=== PATIENT | male | born 1995 | race Caucasian/White ===

== ENCOUNTER 2020-04-05 07:01 | Emergency (ER) | payer MEDICAID, SELFPAY ==
[2020-04-05 07:31] VITALS: BP 116/75; PULSE 74; RESP 16; TEMP 36.8; O2SAT 98; BMI 24.8
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
[2020-04-05] MEDS: Tetracaine HCl/PF 0.5% Oph Sol 4 ML DROPS 1 DROP EYE-RIGHT (08:27)
[2020-04-05] MEDS: Fluorescein Sodium STRIP 1 STRIP EYE-RIGHT (08:28)
== END 2020-04-05 09:08 | disposition home or self-care (01) ==
PROVIDERS: Emergency Provider Emergency Medicine
DX: H20.00 Unspecified acute and subacute iridocyclitis (principal); H57.11 Ocular pain, right eye; H53.143 Visual discomfort, bilateral; F17.200 Nicotine dependence, unspecified, uncomplicated; Z71.6 Tobacco abuse counseling
CPT/HCPCS: 99283

== ENCOUNTER 2020-06-09 10:48 | Emergency (ER) | payer MEDICAID, SELFPAY ==
[2020-06-09 11:16] VITALS: BP 116/63; PULSE 80; RESP 18; TEMP 36.6; O2SAT 100; BMI 25.0
[2020-06-09 12:08] LABS: Glucose Urine UA NEG (NEG); Leukocyte Esterase Urine NEG (NEG); Nitrite Urine NEG (NEG); Urine Blood 2+ (NEG); Urine Ketones NEG (NEG); Urine Protein NEG (NEG-TRACE)
[2020-06-09 12:12] LABS: Appearance Urine HAZY; Color Urine YELLOW
[2020-06-09 12:16] LABS: MANUAL DIFF FLAG NO
[2020-06-09 12:20] LABS: Basophils Percent Auto 0.5 % (0-2); Eosinophils Absolute Auto 0.1 X10*3/uL (0.0-0.4); Eosinophils Percent Auto 1.6 % (0-4); Hematocrit 45.2 % (42-52); Hemoglobin 15.1 g/dl (14.0-18.0); Imm Gran Abs Auto 0.02 X10*3/uL (0.00-0.03); Imm Gran Pct Auto 0.3 % (0.0-0.4); Lymphocytes Absolute Auto 1.9 X10*3/uL (1.2-4.9); Lymphocytes Percent Auto 29.6 % (20-40); Mean Corpuscular HGB Conc 33.4 g/dl (31.0-36.0); Mean Corpuscular Hemoglobin 30.4 pg (27.0-33.0); Mean Corpuscular Volume 90.9 fL (80-98); Mean Platelet Volume 11.2 fL (9.4-12.4); Monocytes Absolute Auto 0.4 X10*3/uL (0.1-1.2); Platelet Count 207 X10*3/uL (160-400); Red Blood Count 4.97 X10*6/uL (4.60-5.80); Red Cell Distribution Width 13.9 % (11.0-16.0); White Blood Count 6.5 X10*3/uL (4.8-10.8)
[2020-06-09 12:51] LABS: Alanine Aminotransferase 18 U/L (0-40); Albumin Level 4.3 g/dL (3.5-5.0); Alkaline Phosphatase 48 U/L (39-117); Anion Gap 12 (12-20); Aspartate Amino Transferase 19 U/L (5-37); Bilirubin Total 1.4 mg/dL (0.0-1.0); Blood Urea Nitrogen 16 mg/dL (9-16); Calcium 9.4 mg/dL (8.4-10.2); Carbon Dioxide 27 mmol/L (22-29); Chloride 106 mmol/L (96-108); Creatinine Clr Calc Pharmacy 122.4; Estimated Glomerular Filt Rate > 60; Glucose Random 98 mg/dL (60-115); Potassium 4.6 mmol/l (3.3-5.1); Sodium 140 mmol/L (135-145); Total Protein 7.1 g/dL (6.5-8.0)
[2020-06-09 13:00] LABS: Amorphous Sediment Urine 1+ /LPF; Mucus Urine 1+ /LPF; Squamous Epithelial Cell Urine TRACE /LPF; WBC Urine 0-2 /HPF (0-4)
--- NOTE | 2020-06-09 14:10 | ED.GENADULT ---
HPI - General Adult General Chief complaint: General Medical Stated complaint: swollen hand, hematuria Time Seen by Provider: 06/09/20 11:31 Source: patient Mode of arrival: ambulatory Limitations: no limitations History of Present Illness HPI narrative: 24-year-old male who denies significant past medical history he presents with multiple complaints 1. He reports that he will get sensation of hand swelling in the bilateral hand usually after working out or doing certain activities and it will go way. States he had this morning and went away completely. This is been going on for several years 2. He reports that he has been noticing some strings of blood in his urine and as well as been going on for the past several months. He denies any testicular pain or swelling. No dysuria. States he is not sexually active. No abdominal pain or flank pain. No nausea vomiting diarrhea. Onset (ago): month(s) Associated symptoms: denies other symptoms Treatments prior to arrival: none Related Data Previous Rx's Medication Instructions Recorded hydrocodone-acetaminophen 1 tab PO Q6H PRN #12 tab 04/05/20 doxycycline monohydrate 100 mg PO BID 7 Days #14 cap 06/09/20 Allergies Allergy/AdvReac Type Severity Reaction Status Date / Time No Known Allergies Allergy Verified 04/05/20 07:41 [No Known Allergies*] Review of Systems Review of Systems: Constitutional: No Weight loss, No Fever, No Chills, No Night Sweats, No Fatigue, No Malaise ENT/Mouth: No Hearing loss, No Ear Pain, No Nasal Congestion, No Sinus Pain, No Hoarseness, No sore throat, No Rhinorrhea, No Swallowing Difficulty Eyes: No Eye Pain, No Swelling, No Redness, No Foreign Body, No Discharge, No Vision Changes Cardiovascular: No Chest Pain, No SOB, No Dyspnea on Exertion, No Orthopnea, No Edema, No Palpitations Respiratory: No Cough, No Sputum, No Wheezing, No Smoke Exposure, No Dyspnea Gastrointestinal: No Nausea, No Vomiting, No Diarrhea, No Constipation, No abdominal Pain, No Hematochezia, No Melena Genitourinary: no irregular bleeding, No Dysuria, No Urinary Frequency, No Hematuria, No Urinary Incontinence, No Urgency, No Flank Pain Musculoskeletal: No joint pain, No Myalgias, No Joint Swelling Skin: No Skin Lesions, No rash Neuro: No Weakness, No Numbness, No Paresthesias, No Loss of Consciousness, No Dizziness, No Headache Psych: No Social Issues Heme/Lymph: No Bruising, No Bleeding,No Lymphadenopathy Endocrine: No Polyuria, No Polydipsia, No Temperature Intolerance Yes all other systems are reviewed and are negative [facility] Past Medical History Medical History Hernia Lazy eye of left side Social History Social History Alcohol intake: current Alcohol intake frequency: a few times a week Smoking Status: Current every day smoker Substance Use Type: Marijuana Advance Directives: No Advance Directives Information Provided: Yes Physical Exam Vital Signs: Vital Signs: Last Vital Signs Temp 97.8 F 06/09/20 11:16 Pulse 80 06/09/20 11:16 Resp 18 06/09/20 11:16 BP 116/63 06/09/20 11:16 Pulse Ox 100 06/09/20 11:16 Body Mass Index 25.0 Reviewed Const: General: cooperative and healthy appearing; No acute distress or intoxicated appearing Nutritional Appearance: average body habitus Orientation/consciousness: patient oriented x3 HENMT: Head: Yes normal to inspection Ears: hearing grossly normal bilaterally Eyes: General: appearance normal, both eyes and all related structures Visual De Oliveira: normal visual de oliveira by confrontation Neck: Neck: Yes normal visual inspection, No positive Brudzinski's sign, No positive Kernig's sign and No tender Thyroid: Thyroid normal Chest: Chest palpation & inspection: normal inspection of the chest Resp: Effort & Inspection: normal respiratory effort Auscultation: clear to auscultation bilaterally Cardio: Jugular venous distension: no JVD Rhythm: regular rhythm Heart sounds: S1 normal heart sound present and S2 normal heart sound present GI: Inspection: Yes normal to inspection Palpation (GI): Soft to palpation Percussion: Yes normal to percussion Auscultation: normal bowel sounds : General: Yes no CVA tenderness Back/Spine/Pelvis: Back: no CVA tenderness Skin: General skin exam: no rashes or lesions noted Neuro: General: patient oriented x3 Extrem: Other: Bilateral 1st extremities without any evidence of edema, joint swelling, rash. Neurovascularly intact. Full range of motion. States he does not feel like his hands are swelling at this time. Pulses within normal limits. General: Yes normal to inspection Course Course Course Narrative: In review of the chart multiple episodes of gonorrhea. Reevaluation(s) Reevaluation #1: Lab work essentially unremarkable no leukocytosis. Renal function intact. UA WBC and microscopic RBC given his history of STI my suspicion does exist for this again though he states he feels that he has very low probability of this. Agreeable to getting tested. Will give him ceftriaxone and 500 mg and discharged with doxy with refer to [facility] for full [facility]I panel testing and as well as Urology for further investigation into his hematuria. Medical Decision Making Lab Data Result diagrams: 06/09/20 12:07 06/09/20 12:07 Labs: Lab Results 06/09/20 06/09/20 06/09/20 Range/Units 11:58 12:07 12:07 WBC 6.5 (4.8-10.8) X10*3/uL RBC 4.97 (4.60-5.80) X10*6/uL Hgb 15.1 (14.0-18.0) g/dl Hct 45.2 (42-52) % MCV 90.9 (80-98) fL MCH 30.4 (27.0-33.0) pg MCHC 33.4 (31.0-36.0) g/dl RDW 13.9 (11.0-16.0) % Plt Count 207 (160-400) X10*3/uL MPV 11.2 (9.4-12.4) fL Immature Gran % (Auto) 0.3 (0.0-0.4) % Neut % (Auto) 62.0 (45-73) % Lymph % (Auto) 29.6 (20-40) % [place] % (Auto) 6.0 (2-11) % Eos % (Auto) 1.6 (0-4) % Baso % (Auto) 0.5 (0-2) % Lymph # (Auto) 1.9 (1.2-4.9) X10*3/uL [place] # (Auto) 0.4 (0.1-1.2) X10*3/uL Eos # (Auto) 0.1 (0.0-0.4) X10*3/uL Baso # (Auto) 0.0 (0.0-0.2) X10*3/uL Abs Immat Gran (auto) 0.02 (0.00-0.03) X10*3/uL Absolute Neuts (auto) 4.0 (2.0-8.3) X10*3/uL Absolute Nucleated RBC 0.000 (0.0-0.012) X10*3/uL Nucleated RBC % (auto) 0.0 (0.0-0.2) /100WBC Sodium 140 (135-145) mmol/L Potassium 4.6 (3.3-5.1) mmol/l Chloride 106 (96-108) mmol/L Carbon Dioxide 27 (22-29) mmol/L Anion Gap 12 (12-20) BUN 16 (9-16) mg/dL Creatinine 0.87 (0.5-1.4) mg/dL Estim Creat Clear Calc 122.4 Estimated GFR > 60 Random Glucose 98 (60-115) mg/dL Calcium 9.4 (8.4-10.2) mg/dL Total Bilirubin 1.4 H (0.0-1.0) mg/dL AST 19 (5-37) U/L ALT 18 (0-40) U/L Alkaline Phosphatase 48 (39-117) U/L Total Creatine Kinase (38-174) U/L Total Protein 7.1 (6.5-8.0) g/dL Albumin 4.3 (3.5-5.0) g/dL Urine Color YELLOW Urine Appearance HAZY Urine pH 7.0 (5.0-8.0) Ur Specific [place] 1.020 (1.005-1.025) Urine Protein NEG (NEG-TRACE) MG/DL Urine Glucose (UA) NEG (NEG) MG/DL Urine Ketones NEG (NEG) MG/DL Urine Blood 2+ H (NEG) Urine Nitrite NEG (NEG) Ur Leukocyte Esterase NEG (NEG) Urine RBC 5-9 H (0) /HPF Urine WBC 0-2 (0-4) /HPF Ur Squamous Epith Cells TRACE /LPF Amorphous Sediment 1+ /LPF Urine Bacteria NONE /LPF Urine Mucus 1+ /LPF 06/09/20 Range/Units 12:08 WBC (4.8-10.8) X10*3/uL RBC (4.60-5.80) X10*6/uL Hgb (14.0-18.0) g/dl Hct (42-52) % MCV (80-98) fL MCH (27.0-33.0) pg MCHC (31.0-36.0) g/dl RDW (11.0-16.0) % Plt Count (160-400) X10*3/uL MPV (9.4-12.4) fL Immature Gran % (Auto) (0.0-0.4) % Neut % (Auto) (45-73) % Lymph % (Auto) (20-40) % [place] % (Auto) (2-11) % Eos % (Auto) (0-4) % Baso % (Auto) (0-2) % Lymph # (Auto) (1.2-4.9) X10*3/uL [place] # (Auto) (0.1-1.2) X10*3/uL Eos # (Auto) (0.0-0.4) X10*3/uL Baso # (Auto) (0.0-0.2) X10*3/uL Abs Immat Gran (auto) (0.00-0.03) X10*3/uL Absolute Neuts (auto) (2.0-8.3) X10*3/uL Absolute Nucleated RBC (0.0-0.012) X10*3/uL Nucleated RBC % (auto) (0.0-0.2) /100WBC Sodium (135-145) mmol/L Potassium (3.3-5.1) mmol/l Chloride (96-108) mmol/L Carbon Dioxide (22-29) mmol/L Anion Gap (12-20) BUN (9-16) mg/dL Creatinine (0.5-1.4) mg/dL Estim Creat Clear Calc Estimated GFR Random Glucose (60-115) mg/dL Calcium (8.4-10.2) mg/dL Total Bilirubin (0.0-1.0) mg/dL AST (5-37) U/L ALT (0-40) U/L Alkaline Phosphatase (39-117) U/L Total Creatine Kinase 231 H (38-174) U/L Total Protein (6.5-8.0) g/dL Albumin (3.5-5.0) g/dL Urine Color Urine Appearance Urine pH (5.0-8.0) Ur Specific [place] (1.005-1.025) Urine Protein (NEG-TRACE) MG/DL Urine Glucose (UA) (NEG) MG/DL Urine Ketones (NEG) MG/DL Urine Blood (NEG) Urine Nitrite (NEG) Ur Leukocyte Esterase (NEG) Urine RBC (0) /HPF Urine WBC (0-4) /HPF Ur Squamous Epith Cells /LPF Amorphous Sediment /LPF Urine Bacteria /LPF Urine Mucus /LPF Discharge Plan Discharge Clinical Impression: Hematuria Qualifiers: Hematuria type: other microscopic Qualified Code(s): R31.29 - Other microscopic hematuria Patient Disposition: Home, Self-Care Instructions: Hematuria (ED) Additional Instructions: Follow-up with the health clinic for full panel STD testing as discussed Avoid any further sexual intercourse until cleared Follow-up with a urologist as discussed Return if any concerns or worsening symptoms Thank you Prescriptions: New doxycycline monohydrate 100 mg capsule 100 mg PO BID 7 Days Qty: 14 RF: 0 No Action hydrocodone-acetaminophen 5-325 mg tablet 1 tab PO Q6H PRN (Reason: pain) Qty: 12 RF: 0 Referrals: Nickolas Cantu MD [Physician] - 1 week [place] [Primary Care Provider] - 2 days Stand Alone Forms: Work/School Release Interventions: ED Discharge Assessment Last Done: 06/09/20 15:05 Discharge Date/Time: 06/09/20 15:05
[2020-06-09] MEDS: cefTRIAXone sodium 500 MG, Lidocaine HCl 1 % MPF 1 ML IM (14:56)
[2020-06-11 10:31] LABS: C. trachomatis RNA TMA NOT DETECTED; N. gonorrhoeae RNA TMA NOT DETECTED
== END 2020-06-09 15:05 | disposition home or self-care (01) ==
PROVIDERS: Nurse Practitioner Primary Care; Emergency Provider Emergency Medicine
DX: R31.29 Other microscopic hematuria (principal); Z11.3 Encounter for screening for infections with a predominantly sexual mode of transmission; F17.200 Nicotine dependence, unspecified, uncomplicated
CPT/HCPCS: 36415; 80053; 81001; 82550; 85025; 87491; 87591; 96372; 99283; 99284; J0696

== ENCOUNTER 2020-08-15 13:02 | Outpatient (REF) | payer MEDICAID, SELFPAY | END 2020-08-15 13:03 | disposition home or self-care (01) | LOC: HO.LAB 13:02 | PROVIDERS: Visit Provider Internal Medicine | DX: Z20.822 Contact with and (suspected) exposure to COVID-19 (principal) | CPT/HCPCS: 36415; C9803; U0003; U0005 ==

== ENCOUNTER 2020-10-18 16:50 | Emergency (ER) | payer MEDICAID, SELFPAY ==
[2020-10-18 16:58] VITALS: BP 128/74; PULSE 105; RESP 18; TEMP 36.4; O2SAT 97; BMI 25.0
[2020-10-18 17:25] LABS: Glucose Urine UA NEG (NEG); Leukocyte Esterase Urine NEG (NEG); Nitrite Urine NEG (NEG); Specific Gravity - Urine >= 1.030 (1.005-1.025); Urine Blood TRACE (NEG); Urine Ketones NEG (NEG); Urine Protein TRACE MG/DL (NEG-TRACE)
[2020-10-18 17:26] LABS: Appearance Urine CLEAR; Color Urine YELLOW
[2020-10-18 17:32] LABS: Bacteria Urine TRACE /LPF; Mucus Urine 2+ /LPF; Squamous Epithelial Cell Urine TRACE /LPF; WBC Urine 0-2 /HPF (0-4)
--- NOTE | 2020-10-18 17:47 | ED.GENADULT ---
HPI - General Adult General Chief complaint: Abdominal Pain Stated complaint: side pain Time Seen by Provider: 10/18/20 17:47 Source: patient, RN notes reviewed and old records reviewed Mode of arrival: ambulatory Limitations: no limitations History of Present Illness HPI narrative: 24-year-old male here today for complaints of left upper quadrant pain. He describes this pain as sharp and intermittent. He also reports that his face is itchy as well as his throat feels funny. Denies dysphagia, odynophagia or dyspepsia. Patient reports that he also has a postnasal drip and states that when he took Benadryl the symptoms went away. He is unaware if he has any seasonal allergies or any other allergies. Patient denies any other symptoms Related Data Previous Rx's Medication Instructions Recorded hydrocodone-acetaminophen 1 tab PO Q6H PRN #12 tab 04/05/20 doxycycline monohydrate 100 mg PO BID 7 Days #14 cap 06/09/20 cetirizine [Zyrtec] 10 mg PO DAILY PRN #20 cap 10/18/20 Allergies Allergy/AdvReac Type Severity Reaction Status Date / Time No Known Allergies Allergy Verified 04/05/20 07:41 [No Known Allergies*] Review of Systems Review of Systems: Constitutional : No Weight loss, No Fever, No Chills, No Night Sweats, No Fatigue, No Malaise ENT/Mouth : No Hearing loss, No Ear Pain, No Nasal Congestion, No Sinus Pain, No Hoarseness, No sore throat, Rhinorrhea, No Swallowing Difficulty Eyes: No Eye Pain, No Swelling, No Redness, No Foreign Body, No Discharge, No Vision Changes Cardiovascular : No Chest Pain, No SOB, No Dyspnea on Exertion, No Orthopnea, No Edema, No Palpitations Respiratory : No Cough, No Sputum, No Wheezing, No Smoke Exposure, No Dyspnea Gastrointestinal : No Nausea, No Vomiting, No Diarrhea, No Constipation, abdominal Pain, No Hematochezia, No Melena Genitourinary : no irregular bleeding, No Dysuria, No Urinary Frequency, No Hematuria, No Urinary Incontinence, No Urgency, No Flank Pain, No Urinary Flow Changes, No Hesitancy Musculoskeletal : No joint pain, No Myalgias, No Joint Swelling Skin : No Skin Lesions, No rash Neuro : No Weakness, No Numbness, No Paresthesias, No Loss of Consciousness, No Dizziness, No Headache Psych : No Anxiety/Panic, No Depression, No SI/HI/AH/VH, No Social Issues, Heme/Lymph: No Bruising, No Bleeding,No Lymphadenopathy Endocrine : No Polyuria, No Polydipsia, No Temperature Intolerance Yes all other systems are reviewed and are negative PMFSH Past Medical History Medical History Hernia Lazy eye of left side Social History Social History Alcohol intake: current Alcohol intake frequency: 3 or more drinks per day Alcohol type: beer Patient Tobacco Use Status: Current someday Tobacco user Use of substances other than those prescribed or required for medical reasons: Yes Substance Use Type: Crack/Cocaine Advance Directives: No Advance Directives Information Provided: No Physical Exam Vital Signs: Vital Signs: Last Vital Signs Temp 99.2 F 10/18/20 17:50 Pulse 101 H 10/18/20 17:50 Resp 17 10/18/20 17:50 BP 128/85 10/18/20 17:50 Pulse Ox 98 10/18/20 17:50 Body Mass Index 25.0 Const: General: healthy appearing, no acute distress and well developed Nutritional Appearance: well nourished Orientation/consciousness: patient oriented x3 Neck: Neck: Yes normal visual inspection, Yes full ROM and Yes trachea midline Thyroid: Thyroid normal Resp: Auscultation: clear to auscultation bilaterally Cardio: Rate: regular rate Rhythm: regular rhythm GI: Inspection: Yes normal to inspection and No distended Palpation (GI): No hepatosplenomegaly present Auscultation: normal bowel sounds Skin: General skin exam: elasticity normal, turgor normal and dry skin Neuro: General: patient oriented x3 Course Course Course Narrative: 24-year-old male here today with intermittent left upper quadrant pain that feels like sharp pain. Normal bowel movements every day. On exam patient has a lot of gas in left upper quadrant and mid upper area. Oral exam shows redness to posterior pharynx, questioning postnasal drip and allergies. Patient reports that he took Benadryl and his symptoms went away. Reevaluation(s) Reevaluation #1: Lab work negative for leukocytosis or anemia. Electrolytes normal, liver function tests normal. Spoke to patient, patient reports to be feeling itchy no visible redness or rash. Possible dx seasonal allergy. Will send patient home with [facility]. He is agreeable to plan of care and verbalizes understanding of instructions. He was given the opportunity to ask questions and all questions answered. Medical Decision Making Lab Data Result diagrams: 10/18/20 18:07 10/18/20 18:07 Labs: Lab Results 10/18/20 10/18/20 10/18/20 Range/Units 17:13 18:07 18:07 WBC 10.6 (4.8-10.8) X10*3/uL RBC 5.06 (4.60-5.80) X10*6/uL Hgb 15.3 (14.0-18.0) g/dl Hct 45.6 (42-52) % MCV 90.1 (80-98) fL MCH 30.2 (27.0-33.0) pg MCHC 33.6 (31.0-36.0) g/dl RDW 13.2 (11.0-16.0) % Plt Count 241 (160-400) X10*3/uL MPV 11.0 (9.4-12.4) fL Immature Gran % (Auto) 0.4 (0.0-0.4) % Neut % (Auto) 70.2 (45-73) % Lymph % (Auto) 24.2 (20-40) % [place] % (Auto) 3.8 (2-11) % Eos % (Auto) 0.9 (0-4) % Baso % (Auto) 0.5 (0-2) % Lymph # (Auto) 2.6 (1.2-4.9) X10*3/uL [place] # (Auto) 0.4 (0.1-1.2) X10*3/uL Eos # (Auto) 0.1 (0.0-0.4) X10*3/uL Baso # (Auto) 0.1 (0.0-0.2) X10*3/uL Abs Immat Gran (auto) 0.04 H (0.00-0.03) X10*3/uL Absolute Neuts (auto) 7.4 (2.0-8.3) X10*3/uL Absolute Nucleated RBC 0.000 (0.0-0.012) X10*3/uL Nucleated RBC % (auto) 0.0 (0.0-0.2) /100WBC Sodium 139 (135-145) mmol/L Potassium 4.3 (3.3-5.1) mmol/L Chloride 103 (96-108) mmol/L Carbon Dioxide 26 (22-29) mmol/L Anion Gap 14 (12-20) BUN 15 (9-16) mg/dL Creatinine 1.03 (0.5-1.4) mg/dL Estim Creat Clear Calc 103.3 Estimated GFR > 60 Random Glucose 96 (60-115) mg/dL Calcium 9.6 (8.4-10.2) mg/dL Total Bilirubin 1.1 H (0.0-1.0) mg/dL AST 21 (5-37) U/L ALT 21 (0-40) U/L Alkaline Phosphatase 55 (39-117) U/L Total Protein 7.9 (6.5-8.0) g/dL Albumin 4.7 (3.5-5.0) g/dL Urine Color YELLOW Urine Appearance CLEAR Urine pH 6.0 (5.0-8.0) Ur Specific [place] >= 1.030 H (1.005-1.025) Urine Protein TRACE (NEG-TRACE) MG/DL Urine Glucose (UA) NEG (NEG) MG/DL Urine Ketones NEG (NEG) MG/DL Urine Blood TRACE (NEG) Urine Nitrite NEG (NEG) Ur Leukocyte Esterase NEG (NEG) Urine RBC 1-4 (0) /HPF Urine WBC 0-2 (0-4) /HPF Ur Squamous Epith Cells TRACE /LPF Urine Bacteria TRACE /LPF Urine Mucus 2+ /LPF Discharge Plan Discharge Clinical Impression: Environmental and seasonal allergies Patient Disposition: Home, Self-Care Instructions: Allergies (ED) Additional Instructions: You were seen here today for intermittent abdominal discomfort as well as throat discomfort. The exam shows that you have postnasal drip. All your blood work was negative for any acute findings. I will be sending you home with allergy medication. Please follow-up with your primary care provider in 2-3 days. You may return to emergency department if your symptoms will get worse or if you will experience any other concerning symptoms Prescriptions: New Zyrtec 10 mg capsule 10 mg PO DAILY PRN (Reason: allergy symptoms) Qty: 20 RF: 0 No Action hydrocodone-acetaminophen 5-325 mg tablet 1 tab PO Q6H PRN (Reason: pain) Qty: 12 RF: 0 doxycycline monohydrate 100 mg capsule 100 mg PO BID 7 Days Qty: 14 RF: 0 Interventions: ED Discharge Assessment Last Done: 10/18/20 19:39 Discharge Date/Time: 10/18/20 19:39
[2020-10-18 17:50] VITALS: BP 128/85; PULSE 101; RESP 17; TEMP 37.3; O2SAT 98
[2020-10-18 18:13] LABS: MANUAL DIFF FLAG NO
[2020-10-18 18:17] LABS: Basophils Absolute Auto 0.1 X10*3/uL (0.0-0.2); Basophils Percent Auto 0.5 % (0-2); Eosinophils Absolute Auto 0.1 X10*3/uL (0.0-0.4); Eosinophils Percent Auto 0.9 % (0-4); Hematocrit 45.6 % (42-52); Hemoglobin 15.3 g/dl (14.0-18.0); Imm Gran Abs Auto 0.04 X10*3/uL (0.00-0.03); Imm Gran Pct Auto 0.4 % (0.0-0.4); Lymphocytes Absolute Auto 2.6 X10*3/uL (1.2-4.9); Lymphocytes Percent Auto 24.2 % (20-40); Mean Corpuscular HGB Conc 33.6 g/dl (31.0-36.0); Mean Corpuscular Hemoglobin 30.2 pg (27.0-33.0); Mean Corpuscular Volume 90.1 fL (80-98); Monocytes Absolute Auto 0.4 X10*3/uL (0.1-1.2); Monocytes Percent Auto 3.8 % (2-11); Neutrophils Absolute Auto 7.4 X10*3/uL (2.0-8.3); Neutrophils Percent Auto 70.2 % (45-73); Platelet Count 241 X10*3/uL (160-400); Red Blood Count 5.06 X10*6/uL (4.60-5.80); Red Cell Distribution Width 13.2 % (11.0-16.0); White Blood Count 10.6 X10*3/uL (4.8-10.8)
[2020-10-18 18:40] LABS: Alanine Aminotransferase 21 U/L (0-40); Albumin Level 4.7 g/dL (3.5-5.0); Alkaline Phosphatase 55 U/L (39-117); Anion Gap 14 (12-20); Aspartate Amino Transferase 21 U/L (5-37); Bilirubin Total 1.1 mg/dL (0.0-1.0); Blood Urea Nitrogen 15 mg/dL (9-16); Calcium 9.6 mg/dL (8.4-10.2); Carbon Dioxide 26 mmol/L (22-29); Chloride 103 mmol/L (96-108); Creatinine Clr Calc Pharmacy 103.3; Estimated Glomerular Filt Rate > 60; Glucose Random 96 mg/dL (60-115); Potassium 4.3 mmol/L (3.3-5.1); Sodium 139 mmol/L (135-145); Total Protein 7.9 g/dL (6.5-8.0)
[2020-10-18] MEDS: 0.9 % Sodium Chloride 1,000 ML 999 ML IV (19:06)
== END 2020-10-18 19:39 | disposition home or self-care (01) ==
PROVIDERS: Nurse Practitioner Family; Emergency Provider Internal Medicine
DX: J30.2 Other seasonal allergic rhinitis (principal); R10.12 Left upper quadrant pain; F14.90 Cocaine use, unspecified, uncomplicated; F17.200 Nicotine dependence, unspecified, uncomplicated; Z71.6 Tobacco abuse counseling; Z79.899 Other long term (current) drug therapy
CPT/HCPCS: 36415; 80053; 81001; 85025; 96360; 99284

== ENCOUNTER 2020-12-14 12:03 | Emergency (ER) | payer MEDICAID, SELFPAY ==
[2020-12-14 12:14] VITALS: BP 114/65; PULSE 91; RESP 17; TEMP 36.8; O2SAT 97; BMI 27.1
--- NOTE | 2020-12-14 13:58 | ECG_ITS ---
Test Reason : UPPER RESPIRATORY Blood Pressure : / mmHG Vent. Rate : 072 BPM Atrial Rate : 072 BPM P-R Int : 174 ms QRS Dur : 084 ms QT Int : 364 ms P-R-T Axes : 062 080 048 degrees QTc Int : 398 ms Normal sinus rhythm with sinus arrhythmia Early repolarization Normal ECG No previous ECGs available Referred By: Shirin Melendez Electronically Signed By:MO PUGH MD
--- NOTE | 2020-12-14 14:11 | ED.GENADULT ---
HPI - General Adult General Chief complaint: Upper Respiratory Symptoms Stated complaint: not feeling well since vaccine Time Seen by Provider: 12/14/20 13:51 History of Present Illness HPI narrative: Patient is a 25-year-old male presents today with having episodes of shortness of breath. No dizziness. Not quite feeling well ever since the Adonay Adonay vaccine. Patient denies having chest pain. No leg pain. No diaphoresis. Patient is from home. Patient feels something is in the back of his throat but is able to swallow. There is no change in his voice. There was no coughing or congestion or upper respiratory symptoms. Patient denies any fever or chills. Denies any abdominal pain or chest pain. No diaphoresis. Related Data Previous Rx's Medication Instructions Recorded hydrocodone-acetaminophen 1 tab PO Q6H PRN #12 tab 04/05/20 doxycycline monohydrate 100 mg PO BID 7 Days #14 cap 06/09/20 cetirizine [Zyrtec] 10 mg PO DAILY PRN #20 cap 10/18/20 Allergies Allergy/AdvReac Type Severity Reaction Status Date / Time No Known Allergies Allergy Verified 12/14/20 12:13 [No Known Allergies*] Review of Systems Review of Systems: Positive generalized malaise No chest pain No diaphoresis All systems reviewed otherwise negative [facility] Past Medical History Attestation statement: The following information was validated with the patient. Medical History Hernia Lazy eye of left side Social History Social History Alcohol intake: current Alcohol intake frequency: 3 or more drinks per day Alcohol type: beer Patient Tobacco Use Status: Current someday Tobacco user Substance Use Type: Crack/Cocaine Advance Directives: Yes Advance Directives Information Provided: Yes Advance Directives on File: No Physical Exam Vital Signs: Vital Signs: Last Vital Signs Temp 98.3 F 12/14/20 12:14 Pulse 91 12/14/20 12:14 Resp 17 12/14/20 12:14 BP 114/65 12/14/20 12:14 Pulse Ox 97 12/14/20 12:14 Body Mass Index 27.1 Appearance: Alert. Oriented X3. No acute distress. Eyes: Pupils equal, round and reactive to light. ENT: Pharynx normal. Neck: Normal inspection. Neck supple. No lymph nodes noted. No crepitus CVS: Normal heart rate and rhythm. Pulses normal. Normal S1 and S2 Respiratory: No respiratory distress. Breath sounds normal. No Wheezing. No rales Abdomen: Soft and nontender. No rigidity. No distention. good BS x4 Skin: Skin warm and dry. Normal skin color. Normal skin turgor. Extremities: No lower extremity edema. Neurovascular intact to all extremities. No Lacerations. No Rash Neuro: Oriented X 3. No motor deficit. No sensory deficit. Moving all extermities. No slurred speech Medical Decision Making MDM Narrative Medical decision making narrative: Well-appearing exam is normal there is no posterior pharynx erythema. Patient's trachea is midline. Lungs are completely clear. An EKG shows sinus pattern heart rate was 70 TR cares QT within normal limits there is some early repolarization noted. Patient had the symptom ever since the Adonay Adonay vaccine. Will check a platelet count. Patient's platelet is normal. D-dimer less than 200 no evidence for PE. Electrolytes unremarkable. Patient well appearing. Will discharge patient home close follow-up outpatient basis. No evidence for blood clots. No evidence for shortness of breath. O2 sat is normal. In stable condition. Lab Data Result diagrams: 12/14/20 14:05 12/14/20 14:05 Labs: Lab Results 12/14/20 12/14/20 12/14/20 Range/Units 14:05 14:05 14:05 WBC 7.3 (4.8-10.8) X10*3/uL RBC 4.89 (4.60-5.80) X10*6/uL Hgb 14.6 (14.0-18.0) g/dl Hct 44.6 (42-52) % MCV 91.2 (80-98) fL MCH 29.9 (27.0-33.0) pg MCHC 32.7 (31.0-36.0) g/dl RDW 13.2 (11.0-16.0) % Plt Count 219 (160-400) X10*3/uL MPV 10.8 (9.4-12.4) fL Immature Gran % (Auto) 0.1 (0.0-0.4) % Neut % (Auto) 55.2 (45-73) % Lymph % (Auto) 34.7 (20-40) % [place] % (Auto) 7.1 (2-11) % Eos % (Auto) 2.5 (0-4) % Baso % (Auto) 0.4 (0-2) % Lymph # (Auto) 2.5 (1.2-4.9) X10*3/uL [place] # (Auto) 0.5 (0.1-1.2) X10*3/uL Eos # (Auto) 0.2 (0.0-0.4) X10*3/uL Baso # (Auto) 0.0 (0.0-0.2) X10*3/uL Abs Immat Gran (auto) 0.01 (0.00-0.03) X10*3/uL Absolute Neuts (auto) 4.0 (2.0-8.3) X10*3/uL Absolute Nucleated RBC 0.000 (0.0-0.012) X10*3/uL Nucleated RBC % (auto) 0.0 (0.0-0.2) /100WBC D-Dimer < 200 NG/ML Sodium 141 (135-145) mmol/L Potassium 4.7 (3.3-5.1) mmol/L Chloride 105 (96-108) mmol/L Carbon Dioxide 30 H (22-29) mmol/L Anion Gap 11 L (12-20) BUN 15 (9-16) mg/dL Creatinine 1.00 (0.5-1.4) mg/dL Estim Creat Clear Calc 105.5 Estimated GFR > 60 Random Glucose 81 (60-115) mg/dL Calcium 9.6 (8.4-10.2) mg/dL Discharge Plan Discharge Clinical Impression: Examination Patient Disposition: Home, Self-Care Instructions: Shortness of Breath (ED) Prescriptions: No Action hydrocodone-acetaminophen 5-325 mg tablet 1 tab PO Q6H PRN (Reason: pain) Qty: 12 RF: 0 doxycycline monohydrate 100 mg capsule 100 mg PO BID 7 Days Qty: 14 RF: 0 Zyrtec 10 mg capsule 10 mg PO DAILY PRN (Reason: allergy symptoms) Qty: 20 RF: 0 Referrals: [facility] [Primary Care Provider] - 2 days
[2020-12-14 14:16] LABS: MANUAL DIFF FLAG NO
[2020-12-14 14:19] LABS: Basophils Percent Auto 0.4 % (0-2); Eosinophils Absolute Auto 0.2 X10*3/uL (0.0-0.4); Eosinophils Percent Auto 2.5 % (0-4); Hematocrit 44.6 % (42-52); Hemoglobin 14.6 g/dl (14.0-18.0); Imm Gran Abs Auto 0.01 X10*3/uL (0.00-0.03); Imm Gran Pct Auto 0.1 % (0.0-0.4); Lymphocytes Absolute Auto 2.5 X10*3/uL (1.2-4.9); Lymphocytes Percent Auto 34.7 % (20-40); Mean Corpuscular HGB Conc 32.7 g/dl (31.0-36.0); Mean Corpuscular Hemoglobin 29.9 pg (27.0-33.0); Mean Corpuscular Volume 91.2 fL (80-98); Mean Platelet Volume 10.8 fL (9.4-12.4); Monocytes Absolute Auto 0.5 X10*3/uL (0.1-1.2); Monocytes Percent Auto 7.1 % (2-11); Neutrophils Percent Auto 55.2 % (45-73); Platelet Count 219 X10*3/uL (160-400); Red Blood Count 4.89 X10*6/uL (4.60-5.80); Red Cell Distribution Width 13.2 % (11.0-16.0); White Blood Count 7.3 X10*3/uL (4.8-10.8)
[2020-12-14 14:32] LABS: D Dimer < 200 NG/ML
[2020-12-14 14:52] LABS: Anion Gap 11 (12-20); Blood Urea Nitrogen 15 mg/dL (9-16); Calcium 9.6 mg/dL (8.4-10.2); Carbon Dioxide 30 mmol/L (22-29); Chloride 105 mmol/L (96-108); Creatinine Clr Calc Pharmacy 105.5; Estimated Glomerular Filt Rate > 60; Glucose Random 81 mg/dL (60-115); Potassium 4.7 mmol/L (3.3-5.1); Sodium 141 mmol/L (135-145)
== END 2020-12-14 15:10 | disposition home or self-care (01) ==
PROVIDERS: Emergency Provider Emergency Medicine Emergency Medical Services
DX: Z03.6 Encounter for observation for suspected toxic effect from ingested substance ruled out (principal); R53.81 Other malaise; F17.210 Nicotine dependence, cigarettes, uncomplicated
CPT/HCPCS: 36415; 80048; 85025; 85379; 93005; 99283

== ENCOUNTER 2021-01-16 22:24 | Emergency (ER) | payer MEDICAID, SELFPAY ==
[2021-01-16 22:43] VITALS: BP 124/76; PULSE 98; RESP 17; TEMP 36.8; O2SAT 98; BMI 27.1
--- NOTE | 2021-01-16 23:43 | ED.GENADULT ---
HPI - General Adult General Chief complaint: General Medical Stated complaint: itchy feel Time Seen by Provider: 01/16/21 23:36 Source: patient Mode of arrival: ambulatory Limitations: no limitations History of Present Illness HPI narrative: 25 yo male presenting to the ER for re-evaluation of intermittent itching on his face, arms and back. He was seen here in September for the same with a negative workup - started on Zyrtec which he never started. He has been taking benadryl intermittently with some improvement. No rash. No fever or chills. No new soaps or lotions. He has been using noxema pads to his face which is where the itching is the worst. No cough, wheezing, SOB. He reports his GF also has been itching. Denies bed bugs. He googled it and is afraid he has HIV. MD complaint: itchy skin Onset (ago): month(s) Location: face, chest, back, left, right and upper extremity Radiation: non-radiation Severity: moderate Pain Consistency: intermittent Relieving factors: none Exacerbating factors: none Associated symptoms: denies other symptoms Treatments prior to arrival: none Related Data Previous Rx's Medication Instructions Recorded hydrocodone 5 mg-acetaminophen 325 1 tab PO Q6H PRN #12 tab 04/05/ mg tablet doxycycline monohydrate 100 mg 100 mg PO BID 7 Days #14 cap 06/09/20 capsule cetirizine 10 mg capsule (Zyrtec) 10 mg PO DAILY PRN #20 cap 10/18/20 cetirizine 10 mg tablet (Zyrtec) 10 mg PO DAILY #14 tab 01/16/21 Allergies Allergy/AdvReac Type Severity Reaction Status Date / Time No Known Allergies Allergy Verified 01/16/21 22:43 [No Known Allergies*] Review of Systems Review of Systems: Constitutional: No Fever, No Chills ENT/Mouth: No sore throat Eyes: No Eye Pain, No Swelling, No Redness Cardiovascular: No Chest Pain, No SOB Respiratory: No Cough, No Sputum, No Wheezing Gastrointestinal: No Nausea, No Vomiting Musculoskeletal: No joint pain, No Myalgias Skin: No Skin Lesions, No rash Neuro: No Weakness, No Numbness, No Dizziness, No Headache Psych: + Anxiety/Panic, No Depression Heme/Lymph: No Bruising, No Lymphadenopathy PMFSH Past Medical History Attestation statement: The following information was validated with the patient. Medical History Hernia Lazy eye of left side Social History Social History Alcohol intake: current Alcohol intake frequency: 3 or more drinks per day Alcohol type: beer Patient Tobacco Use Status: Current someday Tobacco user Substance Use Type: Crack/Cocaine Advance Directives: No Advance Directives Information Provided: No Physical Exam Vital Signs: Vital Signs: Last Vital Signs Temp 98.2 F 01/16/21 22:43 Pulse 98 01/16/21 22:43 Resp 17 01/16/21 22:43 BP 124/76 01/16/21 22:43 Pulse Ox 98 01/16/21 22:43 Body Mass Index 27.1 Appearance: Alert. Oriented X3. No acute distress. Eyes: Pupils equal, round and reactive to light. ENT: Pharynx normal. Neck: Normal inspection. Neck supple. CVS: Normal heart rate and rhythm. Pulses normal. Respiratory: No respiratory distress. Breath sounds normal. Abdomen: Soft and nontender. +BS x4 Skin: Skin warm and dry. Normal skin color. Normal skin turgor. No rashes. Facial acne Extremities: No lower extremity edema. No web space lesions Neuro: Oriented X 3. No motor deficit. No sensory deficit. Course Course Course Narrative: 25 yo here for recurrent itching. Exam is unremarkable. Workup has been unremarkable in the past. Possibly dry skin from using dollar store skin products. Advised to use zyrtec and hypoallergic detergents. Stable for discharge. Critical Care Time Critical Care Time Critical Care Time: No Discharge Plan Discharge Clinical Impression: Itchy skin Patient Disposition: Home, Self-Care Instructions: Itchy Skin (ED), Allergy Testing (ED) Additional Instructions: Recommend starting Zyrtec daily. Sent to your pharmacy. Stop using the Noxema pads. Remove all soaps and detergents with scent. Use hypoallergenic laundry detergent. Recommend continuing benadryl as needed for itching. Follow up with a PCP for further management. If you develop new or worsening symptoms come back to the ER for further evaluation. Prescriptions: New cetirizine [Zyrtec] 10 mg tablet 10 mg PO DAILY Qty: 14 RF: 0 No Action hydrocodone-acetaminophen 5-325 mg tablet 1 tab PO Q6H PRN (Reason: pain) Qty: 12 RF: 0 doxycycline monohydrate 100 mg capsule 100 mg PO BID 7 Days Qty: 14 RF: 0 Zyrtec 10 mg capsule 10 mg PO DAILY PRN (Reason: allergy symptoms) Qty: 20 RF: 0 Interventions: ED Discharge Assessment Last Done: 01/16/21 23:58 Discharge Date/Time: 01/17/21 00:03
== END 2021-01-17 00:03 | disposition home or self-care (01) ==
PROVIDERS: Emergency Provider Emergency Medicine
DX: L29.9 Pruritus, unspecified (principal); F17.210 Nicotine dependence, cigarettes, uncomplicated
CPT/HCPCS: 99283

== ENCOUNTER 2021-01-17 11:42 | Outpatient (REF) | payer MEDICAID, SELFPAY ==
[2021-01-17 12:36] LABS: COVID-19 Test Negative (Negative)
== END 2021-01-17 11:43 | disposition home or self-care (01) ==
LOC: HO.LAB 11:42
PROVIDERS: Visit Provider Internal Medicine
DX: Z20.822 Contact with and (suspected) exposure to COVID-19 (principal)
CPT/HCPCS: 36415; 87635; C9803

== ENCOUNTER 2022-07-15 08:57 | Emergency (ER) | payer MEDICAID, SELFPAY ==
--- NOTE | ~2022-07-15 | XR_ITS ---
EXAMINATION: XR KNEE, LEFT CLINICAL INFORMATION: Left knee pain COMPARISON: None TECHNIQUE: AP and lateral views of the left knee. FINDINGS: Normal bony mineralization. No fracture, dislocation, or arthropathy. No joint narrowing or erosive change or chondrocalcinosis. No suprapatellar effusion. Hoffa's fat pad appears normal. XR/XR knee LT 2V IMPRESSION: Normal left knee.
[2022-07-15 09:15] VITALS: BP 119/72; PULSE 106; RESP 18; TEMP 36.9; O2SAT 97; BMI 28.1
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
== END 2022-07-15 10:21 | disposition home or self-care (01) ==
PROVIDERS: Emergency Provider Emergency Medicine
DX: M54.50 Low back pain, unspecified (principal); M25.562 Pain in left knee
CPT/HCPCS: 73560; 99283

== ENCOUNTER 2024-03-10 05:36 | Day surgery (SDC) | payer OTHER, SELFPAY ==
[2024-03-05 12:57] VITALS: BMI 32.6
[2024-03-10] VITALS (8 sets, daily range): BP systolic 103–140; BP diastolic 64–97; PULSE 77–96; RESP 17–18; TEMP 36.1–36.9; O2SAT 96–100; BMI 31.3
[2024-03-10] MEDS: Lactated Ringers 1,000 ML 100 ML IVCONT (06:14)
--- NOTE | 2024-03-10 07:30 | HO.ANESPROP2 ---
Documented by User: Jaci García NP 03/05/24 14:37 HPI - Anesthesia Eval Consult details Narrative: 28yo M for Left Lateral Rectus Eye Muscle Recession,Left Medical Rectus Resection [facility] Past Medical History Medical History (Updated 03/05/24 @ 12:57 by Stacia Zhou RN) Back pain Lazy eye of left side Hernia Surgical History Surgical History (Updated 03/10/24 @ 07:07 by Preeti Friedman, RN) H/O eye surgery Social History Social History (Updated 03/05/24 @ 13:04 by Stacia Zhou RN) Alcohol intake: current Alcohol intake frequency: a few times a week Alcohol type: beer Patient Tobacco Use Status: Never used Tobacco Substance Use Type: Crack/Cocaine and Former Substance User Substance Use Type Other:: used 1 mth ago per patient Substance Use Frequency: Occasionally Have you been hit, kicked, punched, or otherwise hurt by someone within the past year? If so, by whom?: No Are you DNR?: No Advance Directives: No Advance Directives Information Provided: Yes Recently lost weight without trying: No Nutrition Risks: No Nutritional Risk Meds Allergies Allergy/AdvReac Type Severity Reaction Status Date / Time risperidone [From Risperdal] Allergy Unknown Unknown Verified 03/05/24 12:59 Home Medications ?Medication ?Instructions ?Recorded ?Confirmed ?Last Taken ?Type No Known Home Meds 03/05/24 03/05/24 Unknown History Exam Height,Weight and Vital Signs: Height 5 ft 7.72 in Weight 96.6 kg Assessment and Plan Assessment Anesthesia Assessment: Chart Reviewed Documented by User: Pat Rodriguez DO 03/10/24 08:04 [facility] Past Medical History Medical History (Updated 03/05/24 @ 12:57 by Stacia Zhou RN) Back pain Lazy eye of left side Hernia Family History Family history of problems with anesthesia: No Surgical History Surgical History (Updated 03/10/24 @ 07:07 by Preeti Friedman RN) H/O eye surgery History of Problems with Anesthesia: No Social History Social History (Updated 03/05/24 @ 13:04 by Stacia Zhou RN) Alcohol intake: current Alcohol intake frequency: a few times a week Alcohol type: beer Patient Tobacco Use Status: Never used Tobacco Substance Use Type: Crack/Cocaine and Former Substance User Substance Use Type Other:: used 1 mth ago per patient Substance Use Frequency: Occasionally Have you been hit, kicked, punched, or otherwise hurt by someone within the past year? If so, by whom?: No Are you DNR?: No Advance Directives: No Advance Directives Information Provided: Yes Recently lost weight without trying: No Nutrition Risks: No Nutritional Risk Meds Allergies Allergy/AdvReac Type Severity Reaction Status Date / Time risperidone [From Risperdal] Allergy Unknown Unknown Verified 03/05/24 12:59 Home Medications ?Medication ?Instructions ?Recorded ?Confirmed ?Last Taken ?Type No Known Home Meds 03/05/24 03/05/24 Unknown History Exam Exam Date and Time: 03/10/24 0730 Height,Weight and Vital Signs: Height 5 ft 7.72 in Weight 96.6 kg Vital Signs Temperature 98.4 F 03/10/24 06:04 Pulse Rate 89 03/10/24 06:04 Respiratory Rate 18 03/10/24 06:04 Blood Pressure 140/97 H 03/10/24 06:04 Pulse Oximetry 97 03/10/24 06:04 Oxygen Delivery Method Room Air 03/10/24 06:04 Temperature 98.4 F 03/10/24 06:04 Pulse Rate 89 03/10/24 06:04 Respiratory Rate 18 03/10/24 06:04 Blood Pressure 140/97 H 03/10/24 06:04 Pulse Oximetry 97 03/10/24 06:04 Oxygen Delivery Method Room Air 03/10/24 06:04 Airway Mallampati Class: II TM Dist: >3cm Neck ROM: Full Loose/Missing/Broken Teeth: Yes (a few missing molars but no loose or broken teeth) Heart: S1S2 Lungs: CTAB Assessment and Plan Assessment Anesthesia Assessment: Anesthesia Plan Discussed and Chart Reviewed Final Anesthetic Review Family History of Problems with Anesthesia: No History of Problems with Anesthesia: No NPO: Yes ASA Class: II Final Preanesthetic Review: No Changes in Pt Med Stat, Meds/Allgs Chart Reviewed, Consent Obtained/Reviewed and Anes Risks/Benef Reviewed Patient Risk: Low Procedure Risk: Low Anesthetic Plan Anesthetic Plan: GA and Agree w/ Assess. and Plan Disposition: Standard PACU
--- NOTE | 2024-03-10 12:53 | HO.OPHTHAL ---
Ophthalmology Operative Note Date of Service: 03/10/24 Narrative: Diagnosis exotropia. Procedures 1. Recession of left lateral rectus 9 mm 2. Resection of left medial rectus [address] Bishop. Anesthesia general. Complications none. The patient was brought to the operative room placed under general anesthesia. The eyes were prepped and draped in the usual sterile ophthalmic fashion. A lid speculum was placed in the left eye and incision was made at bare sclera in the inferotemporal fornix. The lateral rectus muscle was hooked and secured with a double-armed Vicryl suture. The muscle was disinserted from the globe and reattached to a position 9 mm behind the original insertion. Conjunctiva was closed with interrupted Vicryl sutures. An incision was then made down to bare sclera in the inferonasal fornix. The medial rectus muscle was hooked and placed on a muscle clamp. The overlying fascial attachments were dissected free and a 7 mm resection was marked off with cautery. The resection point was secured and the distal muscle resected. The resection point was then drawn forward to the insertion with the Vicryl sutures. Conjunctiva was closed with interrupted Vicryl sutures. The patient was then awoken from general anesthesia and discharged to postoperative recovery in good condition.
== END 2024-03-10 10:06 | disposition home or self-care (01) ==
PROVIDERS: PCP Family Medicine; Visit Provider Ophthalmology
PROC: (CPT 67312; principal; 2024-03-10 07:30)
DX: H50.112 Monocular exotropia, left eye (principal); F10.90 Alcohol use, unspecified, uncomplicated; F14.11 Cocaine abuse, in remission; K46.9 Unspecified abdominal hernia without obstruction or gangrene; M54.9 Dorsalgia, unspecified; Z88.8 Allergy status to other drugs, medicaments and biological substances
CPT/HCPCS: 67312; J1100; J1596; J1885; J2003; J2250; J2405; J2704; J3010

== ENCOUNTER 2024-11-13 14:25 | Emergency (ER) | payer SELFPAY ==
--- NOTE | ~2024-11-13 | CT_ITS ---
CLINICAL HISTORY: headache after working out, eval for [facility] CT head with and without contrast. COMPARISON: None provided. FINDINGS: The visualized paranasal sinuses are clear. The mastoid air cells are clear. No calvarial fracture. No evidence for mass or mass effect. No intracranial hemorrhage or abnormal extra-axial fluid collection. No evidence of hydrocephalus. The basilar cisterns are patent. Cavum septum pellucidum and vergae present, normal variant. Posterior fossa appears unremarkable. No areas of abnormal contrast enhancement. IMPRESSION: 1. No acute intracranial findings. This document has been electronically signed by: Bruce Wheat MD on 11/13/2024 17:22:53
[2024-11-13 14:35] VITALS: BP 118/61; PULSE 85; RESP 16; TEMP 36.6; O2SAT 97; BMI 25.1
--- NOTE | 2024-11-13 14:36 | ED_ITS ---
HPI - Neck Pain/Injury General Chief Complaint: Neck Pain/Injury Stated Complaint: neck inj lifting weights Time Seen by Provider: 11/13/24 14:48 Source: patient Mode of arrival: ambulatory Limitations: no limitations History of Present Illness ED Provider: HPI Narrative: 29-year-old male presenting with headache that has been improving, started yesterday, he was working out, started having pain in his upper back and neck, today woke up he was having a headache, took a Tylenol and by time he arrived to the ER he was having a headache but it is improving, he states when he took Tylenol he did have an episode of nausea and vomited once, currently does not have any nausea no chest pain no other medical problems. Nonsmoker nondrinker no drug use reported. Related Data Previous Rx's ?Medication ?Instructions ?Recorded cyclobenzaprine 10 mg tablet 10 mg PO TID PRN pain, mu scle 11/13/24 spasm #15 tabs Allergies Allergy/AdvReac Type Severity Reaction Status Date / Time risperidone (From Risperdal) Allergy Unknown Unknown Verified 11/13/24 14:35 Review of Systems 2 Constitutional: Constitutional: Reports as per [facility] Past Medical History Medical History (Updated 11/14/24 @ 00:00 by Mark Hancock) Back pain Lazy eye of left side Hernia Surgical History (Updated 03/10/24 @ 07:07 by Preeti Friedman, RN) H/O eye surgery Social History Social History (Updated 03/05/24 @ 13:04 by Stacia Zhou RN) Alcohol intake: current Alcohol intake frequency: a few times a week Alcohol type: beer Patient Tobacco Use Status: Never used Tobacco Smoked in Last 30 Days: No Use of substances other than those prescribed or required for medical reasons: No Substance Use Type: Crack/Cocaine and Former Substance User Advance Directives: No Advance Directives Information Provided: No Do you have a plan to hurt others: No Plan Physical Exam 2 Vital Signs: Vital Signs: Last Vital Signs Temp 97.5 F 11/13/24 19:17 Pulse 62 11/13/24 19:17 Resp 15 11/13/24 19:17 BP 102/72 11/13/24 19:17 Pulse Ox 97 11/13/24 19:17 O2 Del Method Room Air 11/13/24 19:17 BMI result Body Mass Index 25.1 Const: Other: * Gen: ?Overall well-appearing patient * Neck: Supple, no meningismus, some paraspinal tenderness more in the right * CV: RRR, no obvious murmurs appreciated * Resp: ?No wheezing rales rhonchi no stridor moving air well * Abd: ?Bowel sounds are present, no tenderness no rebound no rigidity * MSK: FROM, strength 5/5 all extremities * Skin: Warm, dry, intact, * Neuro: ?Alert and oriented x3, moving upper and lower extremities symmetrically, no obvious facial asymmetry noted, pupils 3 mm reactive bilaterally Course Course Course Narrative: This is an RME: Additional HPI, ROS, PE not included below will be deferred to primary provider. RME assessment and note performed by: Hoda Rodríguez PA-C This is a [id number]-male who presents to the ER with complaints of neck pain, headache and vomiting. Pt states that he was on a seated fly machine working out and he suddenly developed neck and upper back pain. He continued to have neck pain last night. awoke this morning with headache and nausea and vomiting. Left eye conjunctiva is injected and draining, slight itchiness - states that he has had these symptoms for several days. He appears to be neurologically intact. Reports eye surgery on left eye for exotropia Plan: Labs, defer imaging to primary provider Medications Administered Discontinued Medications Generic Name Dose Route Start Last Admin Trade Name Freq PRN Reason Stop Dose Admin Cyclobenzaprine HCl 10 mg 11/13/24 18:52 11/13/24 19:13 Cyclobenzaprine Hcl 10 Mg Tablet PO 11/13/24 18:53 10 mg ONCE ONE Administration Sodium Chloride 1,000 mls @ 999 mls/hr 11/13/24 15:00 11/13/24 16:23 Ns IV 11/13/24 16:00 Infused .Q1H1M RENNY Infusion Iohexol 100 ml 11/13/24 16:26 11/13/24 16:27 Iohexol 350 Mg/Ml 100 Ml Infus..Btl IV 11/13/24 16:27 85 ml ONCE ONE Administration Ondansetron HCl 4 mg 11/13/24 14:49 11/13/24 15:28 Ondansetron Hcl 4 Mg/2 Ml Vial IVPUSH 11/13/24 14:50 4 mg ONCE ONE Administration Medical Decision Making Medical Decision Making [facility] Narrative: As patient was having headache, nausea and episode of vomiting definitely a consideration for workup for subarachnoid hemorrhage eyes indicated we will obtain CT of the brain with and without contrast, he is not exhibiting any meningismus signs at this time, no neurologic deficits to suspect a stroke, and overall he is looking well, if CTs are negative I spoke with the patient about this I did not feel it would require further workup with a lumbar puncture, he did have symptoms that started yesterday, and so CT sensitivity after proximally than hours really decreases and if the suspicion is high LP would be indicated but with the patient shared decision-making and the fact that he is feeling better LP would be held off if CT is negative. 11/13/[id number] Markie Rowley MD I assumed care of this patient from my colleague, Dr. Trang Chaves at 16:30 hours, pending the patient's CT head result. 29-year-old male with no significant past medical history who presents emergency department for evaluation of neck pain and headache. The patient states that yesterday at around 18:00 he was using 15 lb dumbbell weights and was doing a standing fly. He states that his cat walked towards him and he had to turn in his neck to look at his CAT which caused him to have pain in his neck. States that the pain felt like a muscle strain he did not have a headache at that time. The patient states that he slept until noon and when he woke up at noon time he was having pain in the right posterior aspect of his head and neck. Describes the pain is a throbbing sensation which was 10/10. The patient had associated nausea. He took some Tylenol and drank some water and he states the headache eventually improved. The patient came to the emergency department and at the time of evaluation in his pain was 5/10. At the time of my evaluation the patient states that his pain is completely resolved. The patient was only treated with Zofran 4 mg IV in the emergency department. Exam Physical examination did reveal tenderness palpation of the right posterior aspect of the patient's scalp, right trapezius muscle and right sternocleidomastoid muscle. The patient has spasm of both trapezius muscles bilaterally with tenderness palpation of these muscles. CT head with and without IV contrast revealed no abnormalities. The patient presented within 6 hours of onset of his headache at noon today. Given the patient's mechanism of injury of his neck yesterday, that has headache with onset at noon, physical exam findings , I believe that the negative CT scan without contrast is sensitive enough to rule out an intracranial hemorrhage. The patient did not have a CT angiogram of his head and neck but I do not think this is necessary . I did discuss my reasoning and rationale with the patient. Patient will be treated for musculoskeletal pain causing his headache. He was advised to take ibuprofen and Tylenol. He was also given a prescription for Flexeril 10 mg 3 times a day as needed for pain and spasm. The patient was given a dose of Flexeril 10 mg orally prior to discharge. He was given printed and verbal instructions discharged home. Differential Diagnosis Differential Diagnoses: The differential diagnosis associated with the presentation includes Subarachnoid hemorrhage, muscle strain, migraine, tension headache, vertebral artery dissection, Admission/Observation Consideration of admission/observation: Escalation of care including admission/observation considered Lab Data MDM Lab Attestation statement: I reviewed the patient's lab results. 11/13/24 15:07 11/13/24 15:07 Labs: Lab Results 11/13/24 Range/Units 15:07 WBC 6.5 (4.8-10.8) X10*3/uL RBC 4.99 (4.60-5.80) X10*6/uL Hgb 14.7 (14.0-18.0) g/dl Hct 43.4 (42.0-52.0) % MCV 87.0 (80.0-98.0) fL MCH 29.5 (27.0-33.0) pg MCHC 33.9 (31.0-36.0) g/dl RDW 13.6 (11.0-16.0) % Plt Count 234 (160-400) X10*3/uL MPV 10.4 (9.4-12.4) fL Immature Gran % (Auto) 0.3 (0.0-0.4) % Neut % (Auto) 66.9 (45-73) % Lymph % (Auto) 26.1 (20-40) % [place] % (Auto) 5.3 (2-11) % Eos % (Auto) 0.8 (0-4) % Baso % (Auto) 0.6 (0-2) % Lymph # (Auto) 1.7 (1.2-4.9) X10*3/uL [place] # (Auto) 0.3 (0.1-1.2) X10*3/uL Eos # (Auto) 0.1 (0.0-0.4) X10*3/uL Baso # (Auto) 0.0 (0.0-0.2) X10*3/uL Abs Immat Gran (auto) 0.02 (0.00-0.03) X10*3/uL Absolute Neuts (auto) 4.3 (2.0-8.3) x10*3/uL Absolute Nucleated RBC 0.000 (0.0-0.012) X10*3/uL Nucleated RBC % (auto) 0.0 (0.0-0.2) /100WBC Sodium 142 (135-145) mmol/L Potassium 4.4 (3.3-5.1) mmol/L Chloride 107 (96-108) mmol/L Carbon Dioxide 27 (22-29) mmol/L Anion Gap 12 (12-20) BUN 17 H (9-16) mg/dL Creatinine 0.87 (0.5-1.4) mg/dL Estim Creat Clear Calc 121.2 Estimated GFR > 60 Random Glucose 103 (60-115) mg/dL Calcium 9.3 (8.4-10.2) mg/dL Magnesium 2.0 (1.6-2.6) mg/dL Total Bilirubin 0.5 (0.0-1.0) mg/dL AST 20 (5-37) U/L ALT 28 (0-40) U/L Alkaline Phosphatase 53 (39-117) U/L Total Protein 7.3 (6.5-8.0) g/dL Albumin 4.6 (3.5-5.0) g/dL Lipase 23 (8-78) U/L Radiology Impression Discussion of test interpretation with radiology: I have reviewed the radiologist's reading. Radiologist Impression: CT head with and without contrast. COMPARISON: None provided. FINDINGS: The visualized paranasal sinuses are clear. The mastoid air cells are clear. No calvarial fracture. No evidence for mass or mass effect. No intracranial hemorrhage or abnormal extra-axial fluid collection. No evidence of hydrocephalus. The basilar cisterns are patent. Cavum septum pellucidum and vergae present, normal variant. Posterior fossa appears unremarkable. No areas of abnormal contrast enhancement. IMPRESSION: 1. No acute intracranial findings. This document has been electronically signed by: Bruce Wheat MD on 11/13/2024 17:22:53 Prescription Management I considered prescription management with: Other (Anti spasmodic: Flexeril) Discharge Plan Discharge Clinical Impression: Strain of neck muscle, Headache Patient Disposition: Home, Self-Care Additional Instructions: You had a complete blood count and a comprehensive metabolic panel done here in the emergency department. These tests were normal. You had CT scan of the head which revealed no bleeding in your brain. This scan was done within 6 hours of onset of your headache and the CT scan is very sensitive at seeing blood in the brain. The radiologist did not see any blood in your brain which is encouraging and suggest that your headache is not due to bleeding in the brain. Your exam did reveal significant tenderness palpation over the right scalp of your head, right trapezius muscles and spasm of your trapezius muscles. At this time I believe that your headache is caused by strain of your neck muscles and spasm of your neck muscles. Take ibuprofen 200 mg pills, 2 pills every 6 hours as needed for pain or fever. Take Tylenol (acetaminophen) 500 mg pills, 2 pills every 6 hours as needed for pain or fever. Take Flexeril (cyclobenzaprine) 10 mg pills, 1 pill every 6-8 hours as needed for pain or spasm. ?This medication will make you sleepy. ?Do not drive or work while taking this medication. Follow-up with your doctor in 2 days. Please return to the emergency department if your symptoms get worse or if you develop any symptoms that are concerning to you. Prescriptions: New cyclobenzaprine 10 mg tablet 10 mg PO TID PRN (Reason: pain, muscle spasm) Qty: 15 0RF Interventions: ED Discharge Assessment Last Done: 11/13/24 19:17 Discharge Date/Time: 11/13/24 19:17 Print Language: Urdu
[2024-11-13 15:13] LABS: Basophils Percent Auto 0.6 % (0-2); Eosinophils Absolute Auto 0.1 X10*3/uL (0.0-0.4); Eosinophils Percent Auto 0.8 % (0-4); Hematocrit 43.4 % (42.0-52.0); Hemoglobin 14.7 g/dl (14.0-18.0); Imm Gran Abs Auto 0.02 X10*3/uL (0.00-0.03); Imm Gran Pct Auto 0.3 % (0.0-0.4); Lymphocytes Absolute Auto 1.7 X10*3/uL (1.2-4.9); Lymphocytes Percent Auto 26.1 % (20-40); MANUAL DIFF FLAG NO; Mean Corpuscular HGB Conc 33.9 g/dl (31.0-36.0); Mean Corpuscular Hemoglobin 29.5 pg (27.0-33.0); Mean Platelet Volume 10.4 fL (9.4-12.4); Monocytes Absolute Auto 0.3 X10*3/uL (0.1-1.2); Monocytes Percent Auto 5.3 % (2-11); Neutrophils Absolute Auto 4.3 x10*3/uL (2.0-8.3); Neutrophils Percent Auto 66.9 % (45-73); Platelet Count 234 X10*3/uL (160-400); Red Blood Count 4.99 X10*6/uL (4.60-5.80); Red Cell Distribution Width 13.6 % (11.0-16.0); White Blood Count 6.5 X10*3/uL (4.8-10.8)
[2024-11-13] MEDS: 0.9 % Sodium Chloride 1,000 ML 999 ML IV (15:28)
[2024-11-13] MEDS: ondansetron HCL 4 MG/2 ML VIAL IVPUSH (15:28)
[2024-11-13 16:00] VITALS: BP 112/71; PULSE 76; RESP 18; TEMP 36.9; O2SAT 100
[2024-11-13 16:09] LABS: Alanine Aminotransferase 28 U/L (0-40); Albumin Level 4.6 g/dL (3.5-5.0); Alkaline Phosphatase 53 U/L (39-117); Anion Gap 12 (12-20); Aspartate Amino Transferase 20 U/L (5-37); Bilirubin Total 0.5 mg/dL (0.0-1.0); Blood Urea Nitrogen 17 mg/dL (9-16); Calcium 9.3 mg/dL (8.4-10.2); Carbon Dioxide 27 mmol/L (22-29); Chloride 107 mmol/L (96-108); Creatinine Clr Calc Pharmacy 121.2; Estimated Glomerular Filt Rate > 60; Glucose Random 103 mg/dL (60-115); Lipase 23 U/L (8-78); Potassium 4.4 mmol/L (3.3-5.1); Sodium 142 mmol/L (135-145); Total Protein 7.3 g/dL (6.5-8.0)
[2024-11-13] MEDS: iohexoL 350 MG/ML 100 ML INFUS..BTL IV (16:27)
[2024-11-13 18:00] VITALS: BP 122/74; PULSE 60; RESP 12; TEMP 36.7; O2SAT 99
--- NOTE | 2024-11-13 18:18 | PC.NURSE ---
Pt ambulating with steady, independent gait to/from BR; pt asking for something to eat; awaiting dispo from MD at this time; pt appears in no acute distress at this time
[2024-11-13] MEDS: Cyclobenzaprine HCl 10 MG TABLET PO (19:13)
[2024-11-13 19:16] VITALS: BP 102/72; PULSE 62; RESP 15; TEMP 36.4; O2SAT 97
[2024-11-13 19:17] VITALS: BP 102/72; PULSE 62; RESP 15; TEMP 36.4; O2SAT 97
== END 2024-11-13 19:17 | disposition home or self-care (01) ==
PROVIDERS: Emergency Medicine; Emergency Provider Emergency Medicine Emergency Medical Services; PCP Family Medicine
DX: S16.1XXA Strain of muscle, fascia and tendon at neck level, initial encounter (principal); X50.0XXA Overexertion from strenuous movement or load, initial encounter; R51.9 Headache, unspecified; Y93.B3 Activity, free weights; Y92.9 Unspecified place or not applicable; Y99.9 Unspecified external cause status
CPT/HCPCS: 36415; 70470; 80053; 83690; 83735; 85025; 96361; 96374; 99284; J2405; Q9967

== ENCOUNTER → 2024-11-13 14:49 | Outpatient (BNV) | payer SELFPAY | PROVIDERS: Emergency Provider Emergency Medicine Emergency Medical Services; PCP Family Medicine; Visit Provider Radiology Diagnostic Radiology | DX: G44.84 Primary exertional headache (principal) | CPT/HCPCS: 70470 ==